=== PATIENT | female | born 1955 | race Two or more races ===

== ENCOUNTER 2021-02-24 14:35 | Inpatient (IN) | payer MEDICARE, MEDICAID ==
[~2021-02-24] VITALS: Ht 165.1 cm; Wt 116.7 kg
[2021-02-24 15:20] LABS: Basophils # (auto) 0 10 ^3/uL (0-0.2); Basophils % (auto) 0.2 % (0.0-2.0); Eosinophils # (auto) 0 10 ^3/uL (0-0.8); Hematocrit 39.3 % (36.0-46.0); Hemoglobin 13.3 g/dL (12.2-16.2); Lymphocytes # (auto) 1.5 10 ^3/uL (0.4-5.4); Mean Corpuscular Hemoglobin 30.9 pg (28.0-32.0); Mean Corpuscular Volume 91.1 fL (80.0-100.0); Monocytes # (auto) 0.7 10 ^3/uL (0-1.3); Monocytes % (auto) 6.6 % (0.0-12.0); Neutrophils # (auto) 8.6 10 ^3/uL (1.6-8.6); Neutrophils % (auto) 79.2 % (37.0-80.0); Platelet Count (auto) 332 10^3/uL (140-450); Red Blood Cells 4.31 10^6/uL (4.0-5.20); Red Cell Distribution Width 13.6 % (11.8-14.3); White Blood Cell 10.8 10^3/uL (4.4-10.8)
[2021-02-24 15:48] LABS: Albumin 3.3 g/dL (3.4-5.0); Calcium 8.6 mg/dL (8.5-10.1)
[2021-02-24 15:55] LABS: Bilirubin, Total 0.6 mg/dL (0.2-1.0); Total Protein 7.4 g/dL (6.4-8.2)
[2021-02-24 16:08] LABS: Potassium 2.6 mmol/L (3.5-5.1)
[2021-02-24] MEDS ORDERED: POTASSIUM EFFERVESENT TAB 25 MEQ PO ONE (16:15)
[2021-02-24] MEDS ORDERED: SODIUM CHLORIDE 0.9% 500 ML IVB ONE (16:30)
[2021-02-24] MEDS ORDERED: SODIUM CHLORIDE 0.9% 1,000 ML IV ONE (16:30)
[2021-02-24] MEDS ORDERED: LORazepam 2MG/ML-1ML VIAL ONE (18:17)
[2021-02-24] MEDS ORDERED: LORazepam 2MG/ML-1ML VIAL IV ONE (18:45)
[2021-02-24] MEDS: POTASSIUM CHL 20MEQ/100ML 100 ML IV SCH ×2 (18:46→20:35)
[2021-02-24 19:02] LABS: Urine Bacteria NONE SEEN /hpf (None Seen); Urine Blood Negative /uL (Negative); Urine Specific Gravity 1.006 (1.001-1.035); Urine WBC <1 /hpf (0 - 5)
[2021-02-24 19:02] LABS: INR 1.03 (0.9-1.15); Partial Thromboplastin Time 21.1 sec (23.0-31.2)
[2021-02-24 19:21] LABS: Alcohol, Urine < 3.0 mg/dL (0-10); Amphetamine Screen, Urine NEGATIVE (NEGATIVE); Barbiturate Scree,Urine NEGATIVE (NEGATIVE); Benzodiazephine Screen, Urine POSITIVE (NEGATIVE); Cannabinoid Screen, Urine NEGATIVE (NEGATIVE); Cocaine Screen, Urine NEGATIVE (NEGATIVE); Opiate Scree,Urine NEGATIVE (NEGATIVE); Phencyclidine Screen, Urine NEGATIVE (NEGATIVE)
[2021-02-24] MEDS ORDERED: MORPHINE SULF INJ 2 MG/ML SYRINGE 1ML IV PRN (23:00)
[2021-02-24] MEDS ORDERED: DOCUSATE SOD 100 MG CAP PO PRN (23:00)
[2021-02-24] MEDS ORDERED: HYDROcodone-ACET 5/325MG TAB PO PRN (23:00)
[2021-02-24] MEDS ORDERED: NITROGLYCERIN 0.4 MG SL TAB SL PRN (23:00)
[2021-02-24] MEDS ORDERED: ONDANSETRON HCL 4 MG/2 ML VIAL IV PRN (23:00)
[2021-02-24] MEDS ORDERED: TEMAZEPAM 15 MG CAP PO PRN (23:00)
[2021-02-24] MEDS ORDERED: ACETAMINOPHEN 325 MG TAB PO PRN (23:00)
[2021-02-25 05:00] VITALS: BP 142/67
[2021-02-25] MEDS: SODIUM CHLOR 0.9% PF (SALINE LOCK) 10ML VIAL/SYR IV SCH ×3 (06:04→21:16)
[2021-02-25] MEDS ORDERED: LORazepam 2MG/ML-1ML VIAL IV PRN ×3 (06:45→18:45)
[2021-02-25] MEDS ORDERED: ZINC SULFATE 220mg CAP or TAB PO SCH (10:00)
[2021-02-25] MEDS ORDERED: ASCORBIC ACID 500 MG TAB PO SCH (10:00)
[2021-02-25] MEDS: FAMOTIDINE 20 MG TAB PO SCH ×2 (10:00→21:15)
[2021-02-25] MEDS: MULTIPLE VITAMIN TAB PO SCH (10:00)
[2021-02-25] MEDS: HEPARIN SODIUM (PORCINE) 5000 UNITS/ML 1ML VIAL SC SCH ×2 (10:00→21:12)
[2021-02-25 11:20] LABS: Basophils # (auto) 0.1 10 ^3/uL (0-0.2); Basophils % (auto) 0.4 % (0.0-2.0); Eosinophils # (auto) 0 10 ^3/uL (0-0.8); Hematocrit 40.6 % (36.0-46.0); Lymphocytes # (auto) 1.8 10 ^3/uL (0.4-5.4); Lymphocytes % (auto) 14.1 % (10.0-50.0); Mean Corpuscular Hemoglobin 30.9 pg (28.0-32.0); Mean Corpuscular Hgb Conc. 34.3 g/dL (32.0-36.0); Mean Corpuscular Volume 89.9 fL (80.0-100.0); Monocytes # (auto) 0.8 10 ^3/uL (0-1.3); Monocytes % (auto) 6.7 % (0.0-12.0); Neutrophils % (auto) 78.8 % (37.0-80.0); Nucleated Red Blood Cells % 0.1 %; Platelet Count (auto) 321 10^3/uL (140-450); Red Blood Cells 4.52 10^6/uL (4.0-5.20); Red Cell Distribution Width 13.6 % (11.8-14.3); White Blood Cell 12.7 10^3/uL (4.4-10.8)
[2021-02-25 11:24] LABS: Urine Bacteria NONE SEEN /hpf (None Seen); Urine Blood TRACE /uL (Negative); Urine Specific Gravity 1.007 (1.001-1.035); Urine WBC 1 /hpf (0 - 5)
[2021-02-25 11:31] LABS: Albumin 3.2 g/dL (3.4-5.0); Calcium 8.4 mg/dL (8.5-10.1)
[2021-02-25 11:34] LABS: BUN/Creatinine Ratio 13.2; Bilirubin, Total 0.7 mg/dL (0.2-1.0); Total Protein 7.3 g/dL (6.4-8.2)
[2021-02-25] MEDS ORDERED: HALOPERIDOL LACTATE 5 MG/ML INJ VIAL IV ONE (11:45)
[2021-02-25 11:46] LABS: Potassium 2.7 mmol/L (3.5-5.1)
[2021-02-25] MEDS ORDERED: POTASSIUM CHL 20 Meq TABLET PO ONE (12:00)
[2021-02-25] MEDS ORDERED: POTASSIUM EFFERVESENT TAB 25 MEQ PO ONE (12:00)
[2021-02-25] MEDS ORDERED: HYDR-4072 PO (13:06)
[2021-02-25] MEDS ORDERED: ALPR0.254 PO (13:06)
[2021-02-25] MEDS: ALPRAZolam 0.5 MG TAB PO SCH ×2 (14:00→21:15)
[2021-02-25] MEDS: HALOPERIDOL LACTATE 5 MG/ML INJ VIAL IM PRN (16:07)
[2021-02-25] MEDS ORDERED: FLUO60TA7 PO (18:27)
[2021-02-25] MEDS ORDERED: PROP60CA34 PO (18:27)
[2021-02-25 20:19] LABS: Cholesterol 117 mg/dL (< 200); HDL Cholesterol 39 mg/dL (40-59); LDL Cholesterol 60 mg/dL (< 100); Triglycerides 153 mg/dL (< 150)
[2021-02-25] MEDS: ATORVASTATIN 20 MG TAB PO SCH (21:15)
[2021-02-25] MEDS: PROPRANOLOL HCL 20 MG TAB PO SCH (21:15)
[2021-02-25 22:00] VITALS: BP 112/75
[2021-02-25] MEDS: HYDROcodone-ACET 10/325MG TAB PO PRN (22:43)
[2021-02-26] MEDS: HALOPERIDOL LACTATE 5 MG/ML INJ VIAL IM PRN (03:31)
[2021-02-26] MEDS: SODIUM CHLOR 0.9% PF (SALINE LOCK) 10ML VIAL/SYR IV SCH ×3 (05:27→21:16)
[2021-02-26] MEDS: ALPRAZolam 0.5 MG TAB PO SCH ×3 (05:28→21:15)
[2021-02-26] MEDS: PROPRANOLOL HCL 20 MG TAB PO SCH ×3 (05:28→22:34)
[2021-02-26 05:34] VITALS: BP 133/77
[2021-02-26] MEDS ORDERED: LORazepam 2MG/ML-1ML VIAL IV PRN (08:00)
[2021-02-26] MEDS: LORazepam 2MG/ML-1ML VIAL IV PRN ×2 (08:40→15:20)
[2021-02-26 09:00] VITALS: BP 100/62
[2021-02-26] MEDS: ASPirin 81 mg TAB PO SCH (09:21)
[2021-02-26] MEDS: FAMOTIDINE 20 MG TAB PO SCH ×2 (09:21→21:15)
[2021-02-26] MEDS: MULTIPLE VITAMIN TAB PO SCH (09:21)
[2021-02-26] MEDS: HEPARIN SODIUM (PORCINE) 5000 UNITS/ML 1ML VIAL SC SCH ×2 (09:24→21:16)
[2021-02-26 10:12] LABS: Basophils # (auto) 0.1 10 ^3/uL (0-0.2); Basophils % (auto) 0.6 % (0.0-2.0); Eosinophils # (auto) 0 10 ^3/uL (0-0.8); Eosinophils % (auto) 0.5 % (0.0-7.0); Hematocrit 37.6 % (36.0-46.0); Hemoglobin 12.8 g/dL (12.2-16.2); Lymphocytes # (auto) 1.9 10 ^3/uL (0.4-5.4); Lymphocytes % (auto) 17.8 % (10.0-50.0); Mean Corpuscular Hemoglobin 30.8 pg (28.0-32.0); Mean Corpuscular Hgb Conc. 34.1 g/dL (32.0-36.0); Mean Corpuscular Volume 90.3 fL (80.0-100.0); Monocytes # (auto) 0.8 10 ^3/uL (0-1.3); Monocytes % (auto) 7.2 % (0.0-12.0); Neutrophils # (auto) 7.8 10 ^3/uL (1.6-8.6); Neutrophils % (auto) 73.9 % (37.0-80.0); Nucleated Red Blood Cells % 0.1 %; Platelet Count (auto) 299 10^3/uL (140-450); Red Blood Cells 4.16 10^6/uL (4.0-5.20); Red Cell Distribution Width 13.6 % (11.8-14.3); White Blood Cell 10.6 10^3/uL (4.4-10.8)
[2021-02-26 10:54] LABS: Calcium 8.1 mg/dL (8.5-10.1); Potassium 3.1 mmol/L (3.5-5.1)
[2021-02-26 12:46] VITALS: BP 134/57
[2021-02-26] MEDS ORDERED: POTASSIUM CHL 20 Meq TABLET PO ONE (14:15)
[2021-02-26 17:00] VITALS: BP 117/83
[2021-02-26] MEDS: ATORVASTATIN 20 MG TAB PO SCH (21:15)
[2021-02-26 22:00] VITALS: BP 139/86
[2021-02-27] MEDS: HYDROcodone-ACET 10/325MG TAB PO PRN (02:31)
[2021-02-27 05:00] VITALS: BP 133/76
[2021-02-27] MEDS: ALPRAZolam 0.5 MG TAB PO SCH ×3 (05:31→21:41)
[2021-02-27] MEDS: PROPRANOLOL HCL 20 MG TAB PO SCH ×3 (05:32→21:42)
[2021-02-27] MEDS: SODIUM CHLOR 0.9% PF (SALINE LOCK) 10ML VIAL/SYR IV SCH ×3 (05:32→21:42)
[2021-02-27 07:54] LABS: Potassium 3.4 mmol/L (3.5-5.1)
[2021-02-27 08:06] LABS: Calcium 8.5 mg/dL (8.5-10.1); Magnesium 2.4 mg/dL (1.6-2.6)
[2021-02-27] MEDS: MULTIPLE VITAMIN TAB PO SCH (09:23)
[2021-02-27] MEDS: ASPirin 81 mg TAB PO SCH (09:23)
[2021-02-27] MEDS: LORazepam 2MG/ML-1ML VIAL IV PRN (09:24)
[2021-02-27] MEDS: HEPARIN SODIUM (PORCINE) 5000 UNITS/ML 1ML VIAL SC SCH ×2 (09:25→21:41)
[2021-02-27 09:26] VITALS: BP 116/69
[2021-02-27 13:57] VITALS: BP 118/74
[2021-02-27] MEDS ORDERED: POTASSIUM CHL 20 Meq TABLET PO ONE (14:30)
[2021-02-27 18:01] VITALS: BP 96/62
[2021-02-27 21:39] VITALS: BP 138/72
[2021-02-27] MEDS: ATORVASTATIN 20 MG TAB PO SCH (21:42)
[2021-02-28] MEDS: HYDROcodone-ACET 10/325MG TAB PO PRN ×2 (01:28→11:05)
[2021-02-28 04:49] VITALS: BP 121/90
[2021-02-28] MEDS: PROPRANOLOL HCL 20 MG TAB PO SCH ×2 (05:21→14:22)
[2021-02-28] MEDS: ALPRAZolam 0.5 MG TAB PO SCH ×2 (05:21→14:22)
[2021-02-28] MEDS: SODIUM CHLOR 0.9% PF (SALINE LOCK) 10ML VIAL/SYR IV SCH ×2 (05:22→14:23)
[2021-02-28 09:00] VITALS: BP 135/67
[2021-02-28] MEDS: MULTIPLE VITAMIN TAB PO SCH (09:56)
[2021-02-28] MEDS: HEPARIN SODIUM (PORCINE) 5000 UNITS/ML 1ML VIAL SC SCH (09:57)
[2021-02-28 13:00] VITALS: BP 142/66
[2021-02-28 15:57] VITALS: BP 144/66
[2021-02-28 16:51] VITALS: BP 123/65
== END 2021-02-28 18:00 | disposition home or self-care (01) | DRG 917 ==
LOC: EDBD 14:35 → ER 14:35 → TELE-WESTW 22:47 → ER 02-25 01:39 → TELE-WESTW 02-25 08:20
PROVIDERS: ADMIT Nurse Practitioner Family; ATTEND Internal Medicine
DX: T50.901A Poisoning by unspecified drugs, medicaments and biological substances, accidental (unintentional), initial encounter (principal); G92 Toxic encephalopathy; I50.31 Acute diastolic (congestive) heart failure; J96.00 Acute respiratory failure, unspecified whether with hypoxia or hypercapnia; E44.1 Mild protein-calorie malnutrition; F13.239 Sedative, hypnotic or anxiolytic dependence with withdrawal, unspecified; Z68.41 Body mass index [BMI] 40.0-44.9, adult; G40.509 Epileptic seizures related to external causes, not intractable, without status epilepticus; G40.409 Other generalized epilepsy and epileptic syndromes, not intractable, without status epilepticus; G25.0 Essential tremor; E87.6 Hypokalemia; E66.01 Morbid (severe) obesity due to excess calories; Z99.3 Dependence on wheelchair; F32.9 Major depressive disorder, single episode, unspecified; G89.4 Chronic pain syndrome; I11.0 Hypertensive heart disease with heart failure; Y92.89 Other specified places as the place of occurrence of the external cause; Z20.822 Contact with and (suspected) exposure to COVID-19; F17.200 Nicotine dependence, unspecified, uncomplicated; F41.9 Anxiety disorder, unspecified; R32 Unspecified urinary incontinence; Z79.82 Long term (current) use of aspirin; Z79.899 Other long term (current) drug therapy; Z82.62 Family history of osteoporosis; Z83.3 Family history of diabetes mellitus
CPT/HCPCS: 36415; 51702; 70450; 70551; 71045; 72170; 80048; 80053; 80061; 80307; 81001; 83605; 83735; 84439; 84443; 84484; 85025; 85610; 85730; 87040; 87086; 87426; 93005; 93306; 93886; 95819; 96361; 96365; 96375; G0378; J3480; J7060

== ENCOUNTER 2021-07-15 07:54 | Inpatient (IN) | payer MEDICARE, MEDICAID ==
[~2021-07-15] VITALS: Ht 157.5 cm; Wt 102.0 kg
[~2021-07-15 07:54] MED LIST: ALPR0.254 PO; FLUO60TA7 PO; HYDR-4072 PO; PROP60CA34 PO
[2021-07-15] MEDS ORDERED: SODIUM CHLORIDE 0.9% 1,000 ML IV ONE (10:15)
[2021-07-15] MEDS ORDERED: SODIUM CHLORIDE 0.9% 500 ML IVB ONE (10:15)
[2021-07-15 11:29] LABS: Urine Bacteria FEW /hpf (None Seen); Urine Blood Negative /uL (Negative); Urine Specific Gravity 1.006 (1.001-1.035); Urine WBC 1 /hpf (0 - 5)
[2021-07-15 11:32] LABS: Alcohol, Urine < 3.0 mg/dL (0-10); Amphetamine Screen, Urine NEGATIVE (NEGATIVE); Barbiturate Scree,Urine NEGATIVE (NEGATIVE); Benzodiazephine Screen, Urine NEGATIVE (NEGATIVE); Cannabinoid Screen, Urine NEGATIVE (NEGATIVE); Cocaine Screen, Urine NEGATIVE (NEGATIVE); Opiate Scree,Urine NEGATIVE (NEGATIVE); Phencyclidine Screen, Urine NEGATIVE (NEGATIVE)
[2021-07-15 11:32] LABS: Calcium 7.7 mg/dL (8.5-10.1); Magnesium 2.3 mg/dL (1.6-2.6); Potassium 4.9 mmol/L (3.5-5.1)
[2021-07-15 11:38] LABS: Bilirubin, Total 0.5 mg/dL (0.2-1.0); Total Protein 7.2 g/dL (6.4-8.2)
[2021-07-15 12:31] LABS: Basophils # (auto) 0 10 ^3/uL (0-0.2); Basophils % (auto) 0.3 % (0.0-2.0); Eosinophils # (auto) 0 10 ^3/uL (0-0.8); Eosinophils % (auto) 0.5 % (0.0-7.0); Hematocrit 40.3 % (36.0-46.0); Hemoglobin 13.6 g/dL (12.2-16.2); Lymphocytes # (auto) 1.7 10 ^3/uL (0.4-5.4); Lymphocytes % (auto) 17.7 % (10.0-50.0); Mean Corpuscular Hemoglobin 30.8 pg (28.0-32.0); Mean Corpuscular Hgb Conc. 33.8 g/dL (32.0-36.0); Mean Corpuscular Volume 91.1 fL (80.0-100.0); Monocytes # (auto) 0.5 10 ^3/uL (0-1.3); Monocytes % (auto) 5.6 % (0.0-12.0); Neutrophils # (auto) 7.2 10 ^3/uL (1.6-8.6); Neutrophils % (auto) 75.9 % (37.0-80.0); Red Blood Cells 4.42 10^6/uL (4.0-5.20); Red Cell Distribution Width 14.3 % (11.8-14.3); White Blood Cell 9.5 10^3/uL (4.4-10.8)
[2021-07-15] MEDS ORDERED: LORazepam 2MG/ML-1ML VIAL ONE (12:48)
[2021-07-15] MEDS ORDERED: LORazepam 2MG/ML-1ML VIAL IV ONE (13:00)
[2021-07-15] MEDS ORDERED: LACTULOSE 20Gm/30ML SOLN PO PRN (14:00)
[2021-07-15] MEDS ORDERED: MORPHINE SULFATE INJECTION 2 MG/ML SYRG IV PRN (14:00)
[2021-07-15] MEDS ORDERED: traMADol HCL 50 MG TAB PO PRN (14:00)
[2021-07-15] MEDS ORDERED: NITROGLYCERIN 0.4 MG SL TAB SL PRN (14:00)
[2021-07-15] MEDS ORDERED: ACETAMINOPHEN 500 MG TAB PO PRN (14:00)
[2021-07-15] MEDS ORDERED: LORazepam 2MG/ML-1ML VIAL IV PRN ×2 (14:00→21:45)
[2021-07-15] MEDS: SODIUM CHLORIDE 0.9% 1,000 ML IV SCH (14:59)
[2021-07-15] MEDS ORDERED: METOPROLOL TARTRATE 25 MG TAB PO SCH (22:00)
[2021-07-15] MEDS ORDERED: levETIRAcetam 500 MG TAB PO SCH (22:00)
[2021-07-15 23:03] VITALS: BP 142/80
[2021-07-15] MEDS: FLUoxetine HCL 20 MG CAP PO SCH ×3 (23:16→23:46)
[2021-07-15] MEDS: PROPRANOLOL HCL 20 MG TAB PO SCH (23:17)
[2021-07-15] MEDS: TEMAZEPAM 15 MG CAP PO PRN (23:40)
[2021-07-16 01:04] VITALS: BP 142/80
[2021-07-16] MEDS: ALPRAZolam 0.5 MG TAB PO PRN ×2 (02:11→22:05)
[2021-07-16] MEDS: SODIUM CHLORIDE 0.9% 1,000 ML IV SCH (03:20)
[2021-07-16] MEDS: PROMETHAZINE HCL 25 MG/ML 1ML IV PRN (04:00)
[2021-07-16 05:00] VITALS: BP 140/81
[2021-07-16] MEDS: FLUoxetine HCL 20 MG CAP PO SCH ×3 (06:46→22:05)
[2021-07-16 09:00] VITALS: BP 126/74
[2021-07-16] MEDS ORDERED: ENOXAPARIN SOD 40 MG/0.4 ML SYRINGE SC SCH (10:00)
[2021-07-16] MEDS ORDERED: FLUoxetine HCL 20 MG CAP PO SCH (10:00)
[2021-07-16] MEDS ORDERED: ASPirin 81 mg TAB PO SCH (10:00)
[2021-07-16] MEDS ORDERED: NITROGLYCERIN 0.2MG/HR TOPICAL PATCH TD SCH (10:00)
[2021-07-16] MEDS: PROPRANOLOL HCL 20 MG TAB PO SCH ×2 (10:24→22:05)
[2021-07-16 13:00] VITALS: BP 137/74
[2021-07-16 13:56] LABS: Cholesterol 129 mg/dL (< 200); HDL Cholesterol 37 mg/dL (40-59); LDL Cholesterol 70 mg/dL (< 100); Triglycerides 164 mg/dL (< 150)
[2021-07-16 17:00] VITALS: BP 121/63
[2021-07-16 21:56] VITALS: BP 128/81
[2021-07-17] MEDS: PROMETHAZINE HCL 25 MG/ML 1ML IV PRN
[2021-07-17] MEDS: TEMAZEPAM 15 MG CAP PO PRN
[2021-07-17] MEDS: ALPRAZolam 0.5 MG TAB PO PRN (04:28)
[2021-07-17 04:57] VITALS: BP 126/68
[2021-07-17] MEDS: FLUoxetine HCL 20 MG CAP PO SCH ×3 (07:01→11:19)
[2021-07-17 09:00] VITALS: BP 126/78
[2021-07-17] MEDS ORDERED: traZODone HCL 50 MG TAB PO PRN (09:45)
[2021-07-17] MEDS ORDERED: FUROSEMIDE 20 MG/2 ML VIAL IV ONE (10:30)
[2021-07-17] MEDS ORDERED: POTASSIUM CHL 20 Meq TABLET PO ONE (10:30)
[2021-07-17] MEDS: PROPRANOLOL HCL 20 MG TAB PO SCH (11:03)
[2021-07-17] MEDS ORDERED: clonazePAM 0.5 MG TAB PO SCH (16:00)
== END 2021-07-17 14:30 | disposition home or self-care (01) | DRG 100 ==
LOC: EDBD 07:54 → ER 07:54 → TELE 13:46 → TELE-CENTR 22:26
PROVIDERS: ADMIT Internal Medicine; ATTEND Internal Medicine
DX: G40.409 Other generalized epilepsy and epileptic syndromes, not intractable, without status epilepticus (principal); I21.A1 Myocardial infarction type 2; I50.32 Chronic diastolic (congestive) heart failure; E44.1 Mild protein-calorie malnutrition; Z68.41 Body mass index [BMI] 40.0-44.9, adult; F05 Delirium due to known physiological condition; F13.239 Sedative, hypnotic or anxiolytic dependence with withdrawal, unspecified; G89.4 Chronic pain syndrome; G25.0 Essential tremor; F20.9 Schizophrenia, unspecified; F41.1 Generalized anxiety disorder; R55 Syncope and collapse; E66.01 Morbid (severe) obesity due to excess calories; I11.0 Hypertensive heart disease with heart failure; Z20.822 Contact with and (suspected) exposure to COVID-19; Z79.891 Long term (current) use of opiate analgesic; Z82.62 Family history of osteoporosis; Z83.3 Family history of diabetes mellitus; Z88.6 Allergy status to analgesic agent
CPT/HCPCS: 36415; 70450; 71045; 80053; 80061; 80307; 81001; 82550; 83036; 83735; 84443; 84484; 85025; 85652; 86141; 87426; 93005; 95819; 96361; 96365; 96375; 97163; G0378; J7060

== ENCOUNTER 2024-03-10 15:26 | Inpatient (IN) | payer MEDICARE, MEDICAID ==
[~2024-03-10] VITALS: Ht 162.6 cm; Wt 113.7 kg
[~2024-03-10 15:26] MED LIST changes: +ACET500T58 PO; +CEPH250C PO; +FURO1TAB31 PO; +HYDR-4798 PO; +HYDR-4902 PO
[2024-03-10 16:10] VITALS: PULSE 68; RESP 20; O2SAT 94
[2024-03-10] MEDS: LORazepam 2MG/ML-1ML VIAL IV ONE (16:15)
[2024-03-10] MEDS: SODIUM CHLORIDE 0.9% 1,000 ML IVB ONE (16:15)
[2024-03-10] MEDS: IOHEXOL 350 MG/ML 100ML IJ ONE (16:30)
[2024-03-10 17:57] LABS: Basophils # (auto) 0 10 ^3/uL (0-0.2); Basophils % (auto) 0.2 % (0.0-2.0); Eosinophils # (auto) 0.1 10 ^3/uL (0-0.8); Eosinophils % (auto) 0.8 % (0.0-7.0); Hematocrit 45.3 % (36.0-46.0); Hemoglobin 15.3 g/dL (12.2-16.2); Lymphocytes # (auto) 2.1 10 ^3/uL (0.4-5.4); Lymphocytes % (auto) 21.3 % (10.0-50.0); Mean Corpuscular Hemoglobin 31.3 pg (28.0-32.0); Mean Corpuscular Hgb Conc. 33.7 g/dL (32.0-36.0); Mean Corpuscular Volume 92.9 fL (80.0-100.0); Monocytes # (auto) 0.9 10 ^3/uL (0-1.3); Monocytes % (auto) 8.8 % (0.0-12.0); Neutrophils # (auto) 6.8 10 ^3/uL (1.6-8.6); Neutrophils % (auto) 68.9 % (37.0-80.0); Red Blood Cells 4.87 10^6/uL (4.0-5.20); Red Cell Distribution Width 13.7 % (11.8-14.3); White Blood Cell 9.9 10^3/uL (4.4-10.8)
[2024-03-10 17:58] LABS: Urine Bacteria None Seen /hpf (None Seen)
[2024-03-10 18:12] LABS: Alanine Aminotransferase 16 U/L (7-40); Alkaline Phosphatase 95 U/L (46-116); Anion Gap 7 (5-15); Aspartate Aminotransferase 16 U/L (13-40); BUN/Creatinine Ratio 24.6 (10.0-20.0); Blood Alcohol < 3.0 mg/dL (<10); Blood Urea Nitrogen 17 mg/dL (9-23); Calcium 10.5 mg/dL (8.5-10.1); Carbon Dioxide 31 mmol/L (20-30); Chloride 100 mmol/L (98-107); Glucose 94 mg/dL (74-106); Magnesium 2.3 mg/dL (1.6-2.6); Partial Thromboplastin Time 26.6 SEC (24.5-34.5); Potassium 4.2 mmol/L (3.5-5.1); Prothrombin Time 10.6 sec (9.3-11.8); Sodium 138 mmol/L (136-145)
[2024-03-10 18:13] LABS: Albumin 4.9 g/dL (3.2-4.8); Bilirubin, Total 1.2 mg/dL (0.2-1.0); Total Protein 7.7 g/dL (5.7-8.2)
[2024-03-10 18:19] LABS: Urine Blood Negative /uL (Negative); Urine Clarity Clear (Clear); Urine Color Colorless (Yellow); Urine Protein, UAD Negative (Negative); Urine Specific Gravity 1.005 (1.001-1.035); Urine Urobilinogen Normal (Negative); Urine WBC 1 /hpf (0 - 5)
[2024-03-10 18:34] LABS: Amphetamine Screen, Urine Neg (NEGATIVE); Barbiturate Scree,Urine Neg (NEGATIVE); Benzodiazephine Screen, Urine Pos (NEGATIVE); Cannabinoid Screen, Urine Neg (NEGATIVE); Cocaine Screen, Urine Neg (NEGATIVE); Opiate Scree,Urine Neg (NEGATIVE); Phencyclidine Screen, Urine Neg (NEGATIVE)
[2024-03-10 19:30] VITALS: PULSE 69; RESP 24; O2SAT 97
[2024-03-10] MEDS ORDERED: ONDANSETRON HCL 4 MG/2 ML VIAL IV PRN (21:45)
[2024-03-10] MEDS: SODIUM CHLOR 0.9% PF (SALINE LOCK) 10ML VIAL/SYR IV SCH (22:18)
[2024-03-10] MEDS: levETIRAcetam 500 mg/100ml 100 ML IV SCH (22:21)
[2024-03-11] VITALS (8 sets, daily range): BP systolic 143–179; BP diastolic 74–109; PULSE 65–107; RESP 18–20; TEMP 98.3–100; O2SAT 91–94
[2024-03-11] MEDS: FUROSEMIDE 40 MG TAB PO SCH (09:29)
[2024-03-11] MEDS: ENOXAPARIN SOD 40 MG/0.4 ML SYRINGE SC SCH (10:41)
[2024-03-11] MEDS ORDERED: ROSU10TA16 PO (11:11)
[2024-03-11] MEDS ORDERED: ALBU108A5 PO (11:11)
[2024-03-11] MEDS ORDERED: ALEN70TA74 PO (11:11)
[2024-03-11] MEDS: AMOXICILLIN/CLAVULAN 500 MG TAB PO SCH (13:44)
[2024-03-11] MEDS: PROPRANOLOL HCL 20 MG TAB PO SCH (13:44)
[2024-03-11] MEDS: LORazepam 2MG/ML-1ML VIAL IV PRN (19:58)
[2024-03-12] VITALS (8 sets, daily range): BP systolic 142–165; BP diastolic 71–96; PULSE 84–96; RESP 18–22; TEMP 98.3–100; O2SAT 91–100
[2024-03-12 02:56] LABS: COVID19 ANTIGEN SOFIA FIA NEGATIVE (NEGATIVE); Rapid Influenza A Negative (Negative); Rapid Influenza B Negative (Negative)
[2024-03-12] MEDS: D5W/SOD CHL 0.45%/KCL 20MEQ 1,000 ML IV SCH (16:20)
[2024-03-13 00:43] VITALS: BP 162/75; PULSE 72; RESP 18; TEMP 99.3; O2SAT 94
[2024-03-13 04:50] VITALS: BP 154/85; PULSE 65; RESP 18; TEMP 97.7; O2SAT 93
[2024-03-13 09:00] VITALS: BP 158/88; PULSE 95; RESP 20; TEMP 98.3; O2SAT 95
[2024-03-13] MEDS: IOHEXOL 350 MG/ML 100ML IJ ONE (09:09)
[2024-03-13 13:00] VITALS: BP 166/89; PULSE 61; RESP 20; TEMP 98.3; O2SAT 94
[2024-03-13] MEDS: ACETAMINOPHEN 325 MG TAB PO PRN (14:12)
[2024-03-13] MEDS: LORazepam 2MG/ML-1ML VIAL IV PRN (15:45)
[2024-03-13 17:00] VITALS: BP 158/87; PULSE 59; TEMP 98.5; O2SAT 93
[2024-03-13 20:00] VITALS: PULSE 68; RESP 20; O2SAT 95
[2024-03-13] MEDS: NYSTATIN TOPICAL POWDER 15GM TOP SCH (22:56)
[2024-03-14] VITALS (7 sets, daily range): BP systolic 125–193; BP diastolic 68–95; PULSE 63–85; RESP 18–20; TEMP 98.6–100.5; O2SAT 92–96
[2024-03-14] MEDS ORDERED: hydrALAZINE HCL 20 MG/ML VL IV PRN (09:45)
[2024-03-14] MEDS ORDERED: ACETAMINOPHEN IV 1000 MG/100ML (10MG/ML) IV PRN (09:45)
[2024-03-14] MEDS: FLUoxetine HCL 20 MG CAP PO SCH (09:46)
[2024-03-14] MEDS: ALPRAZolam 0.25 MG TAB PO PRN (22:12)
[2024-03-14] MEDS: levETIRAcetam 1000 mg/100ml 100 ML IV SCH (22:13)
[2024-03-15 01:01] VITALS: BP 138/82; PULSE 75; RESP 20; TEMP 98.5; O2SAT 96
[2024-03-15 05:00] VITALS: BP 146/78; PULSE 60; RESP 20; TEMP 98.6; O2SAT 95
[2024-03-15 08:05] VITALS: BP 154/81; PULSE 58; RESP 20; TEMP 98.5; O2SAT 95
[2024-03-15 13:00] VITALS: BP 130/81; PULSE 67; RESP 20; TEMP 98.2; O2SAT 92
[2024-03-15 13:02] LABS: Folate (Folic Acid) > 24.00 ng/mL (>5.38)
[2024-03-15 15:49] LABS: Basophils # (auto) 0 10 ^3/uL (0-0.2); Basophils % (auto) 0.2 % (0.0-2.0); Eosinophils # (auto) 0.2 10 ^3/uL (0-0.8); Eosinophils % (auto) 1.5 % (0.0-7.0); Hematocrit 46.6 % (36.0-46.0); Lymphocytes # (auto) 3.2 10 ^3/uL (0.4-5.4); Lymphocytes % (auto) 23.4 % (10.0-50.0); Mean Corpuscular Hemoglobin 30.8 pg (28.0-32.0); Mean Corpuscular Hgb Conc. 32.3 g/dL (32.0-36.0); Mean Corpuscular Volume 95.3 fL (80.0-100.0); Monocytes # (auto) 1.1 10 ^3/uL (0-1.3); Monocytes % (auto) 8.1 % (0.0-12.0); Neutrophils # (auto) 9.2 10 ^3/uL (1.6-8.6); Neutrophils % (auto) 66.8 % (37.0-80.0); Nucleated Red Blood Cells % 0.1 %; Red Blood Cells 4.89 10^6/uL (4.0-5.20); Red Cell Distribution Width 13.9 % (11.8-14.3); White Blood Cell 13.7 10^3/uL (4.4-10.8)
[2024-03-15 16:08] LABS: Chloride 108 mmol/L (98-107); Potassium 3.5 mmol/L (3.5-5.1); Sodium 139 mmol/L (136-145)
[2024-03-15 16:09] LABS: Anion Gap 6 (5-15); Carbon Dioxide 25 mmol/L (20-30)
[2024-03-15 16:10] LABS: Calcium 9.2 mg/dL (8.7-10.4)
[2024-03-15 16:14] LABS: BUN/Creatinine Ratio 10.5 (10.0-20.0); Blood Urea Nitrogen 6 mg/dL (9-23); Glucose 124 mg/dL (74-106)
[2024-03-15 16:35] VITALS: BP 153/75; PULSE 70; RESP 20; TEMP 98.5; O2SAT 93
[2024-03-15 22:00] VITALS: BP 101/81; PULSE 61; RESP 22; TEMP 98.3; O2SAT 96
[2024-03-16] VITALS (21 sets, daily range): BP systolic 124–174; BP diastolic 59–93; PULSE 59–94; RESP 16–35; TEMP 97.9–99.4; O2SAT 78–100
[2024-03-16] MEDS: LORazepam 2MG/ML-1ML VIAL IV PRN (00:12)
[2024-03-16] MEDS: levETIRAcetam 1000 mg/100ml 100 ML IV ONE (00:16)
[2024-03-16] MEDS: PHENobarbital SODIUM INJ 600 MG in SODIUM CHL 0.9% 100 ML IV ONE (05:17)
[2024-03-16] MEDS: levETIRAcetam 1500 mg/100ml 100 ML IV SCH (09:05)
[2024-03-16 09:11] LABS: Basophils # (auto) 0.1 10 ^3/uL (0-0.2); Basophils % (auto) 0.6 % (0.0-2.0); Eosinophils # (auto) 0.1 10 ^3/uL (0-0.8); Eosinophils % (auto) 0.9 % (0.0-7.0); Hematocrit 42.3 % (36.0-46.0); Hemoglobin 14.4 g/dL (12.2-16.2); Lymphocytes # (auto) 2.4 10 ^3/uL (0.4-5.4); Lymphocytes % (auto) 22.4 % (10.0-50.0); Mean Corpuscular Hemoglobin 31.5 pg (28.0-32.0); Mean Corpuscular Volume 92.6 fL (80.0-100.0); Monocytes % (auto) 9.3 % (0.0-12.0); Neutrophils # (auto) 7.3 10 ^3/uL (1.6-8.6); Neutrophils % (auto) 66.8 % (37.0-80.0); Nucleated Red Blood Cells % 0.1 %; Red Blood Cells 4.57 10^6/uL (4.0-5.20); Red Cell Distribution Width 13.5 % (11.8-14.3); White Blood Cell 10.9 10^3/uL (4.4-10.8)
[2024-03-16 09:25] LABS: Chloride 105 mmol/L (98-107); Potassium 3.1 mmol/L (3.5-5.1); Sodium 138 mmol/L (136-145)
[2024-03-16 09:26] LABS: Anion Gap 4 (5-15); Carbon Dioxide 29 mmol/L (20-30)
[2024-03-16 09:32] LABS: BUN/Creatinine Ratio 12.1 (10.0-20.0); Blood Urea Nitrogen 7 mg/dL (9-23); Glucose 107 mg/dL (74-106)
[2024-03-16] MEDS: D5W/SOD CHL 0.9%/KCL 40MEQ 1,000 ML IV SCH (11:49)
[2024-03-16] MEDS: LORazepam 2MG/ML-1ML VIAL IV ONE (12:45)
[2024-03-16] MEDS: ALPRAZolam 0.25 MG TAB PO SCH (18:00)
[2024-03-16] MEDS: PHENYTOIN IV DILANTIN 1,000 MG in SODIUM CHL 0.9% 250 ML IV ONE (18:15)
[2024-03-16] MEDS: MORPHINE SULFATE INJ 2 MG/ml SYRG IV PRN (20:18)
[2024-03-17] VITALS (38 sets, daily range): BP systolic 127–159; BP diastolic 56–98; PULSE 59–79; RESP 17–34; TEMP 97.6–98.2; O2SAT 89–100
[2024-03-17] MEDS: PHENYTOIN SODIUM 50 MG/ML 2ML VIAL IV SCH (01:45)
[2024-03-17 05:53] LABS: Anion Gap 8 (5-15); Carbon Dioxide 26 mmol/L (20-30); Chloride 107 mmol/L (98-107); Potassium 3.7 mmol/L (3.5-5.1); Sodium 141 mmol/L (136-145)
[2024-03-17 05:55] LABS: Calcium 9.3 mg/dL (8.7-10.4)
[2024-03-17 06:00] LABS: BUN/Creatinine Ratio 21.7 (10.0-20.0); Blood Urea Nitrogen 10 mg/dL (9-23); Glucose 103 mg/dL (74-106)
[2024-03-17] MEDS: FLUCONAZOLE 200MG/100ML 100 ML IV SCH (09:32)
[2024-03-17] MEDS: PHENYTOIN IV DILANTIN 400 MG in SODIUM CHL 0.9% 100 ML IV ONE (20:07)
[2024-03-18] VITALS (15 sets, daily range): BP systolic 104–156; BP diastolic 37–117; PULSE 69–80; RESP 21–32; TEMP 98.1–98.9; O2SAT 90–100
[2024-03-18 07:20] LABS: Basophils # (auto) 0 10 ^3/uL (0-0.2); Basophils % (auto) 0.2 % (0.0-2.0); Eosinophils # (auto) 0.1 10 ^3/uL (0-0.8); Eosinophils % (auto) 0.8 % (0.0-7.0); Hematocrit 41.1 % (36.0-46.0); Hemoglobin 13.9 g/dL (12.2-16.2); Lymphocytes % (auto) 19.5 % (10.0-50.0); Mean Corpuscular Hemoglobin 31.1 pg (28.0-32.0); Mean Corpuscular Hgb Conc. 33.9 g/dL (32.0-36.0); Mean Corpuscular Volume 91.9 fL (80.0-100.0); Monocytes # (auto) 0.9 10 ^3/uL (0-1.3); Monocytes % (auto) 8.8 % (0.0-12.0); Neutrophils # (auto) 7.1 10 ^3/uL (1.6-8.6); Neutrophils % (auto) 70.7 % (37.0-80.0); Red Blood Cells 4.48 10^6/uL (4.0-5.20); Red Cell Distribution Width 13.5 % (11.8-14.3); White Blood Cell 10.1 10^3/uL (4.4-10.8)
[2024-03-18 07:30] LABS: Alanine Aminotransferase 32 U/L (7-40); Albumin 3.9 g/dL (3.2-4.8); Alkaline Phosphatase 80 U/L (46-116); Anion Gap 7 (5-15); Aspartate Aminotransferase 23 U/L (13-40); BUN/Creatinine Ratio 18.8 (10.0-20.0); Bilirubin, Total 0.8 mg/dL (0.2-1.0); Blood Urea Nitrogen 9 mg/dL (9-23); Calcium 9.1 mg/dL (8.5-10.1); Carbon Dioxide 25 mmol/L (20-30); Chloride 109 mmol/L (98-107); Glucose 118 mg/dL (74-106); Potassium 3.4 mmol/L (3.5-5.1); Sodium 141 mmol/L (136-145); Total Protein 6.4 g/dL (5.7-8.2)
[2024-03-18] MEDS ORDERED: Jevity 1.2 Cal/Fiber 1 Liter GT SCH (11:15)
[2024-03-18] MEDS: IPRATROPIUM BROM 0.5 MG/2.5ML INH SOL NEB PRN (19:41)
[2024-03-18] MEDS: ALBUTEROL SULF 2.5 MG/0.5ML(0.5%) NEB SOLN NEB PRN (19:41)
[2024-03-18] MEDS: PHENYTOIN IV DILANTIN 300 MG in SODIUM CHL 0.9% 50 ML IV ONE (21:30)
[2024-03-18] MEDS: PHENYTOIN SODIUM 50 MG/ML 2ML VIAL IV ONE (21:30)
[2024-03-19] VITALS (21 sets, daily range): BP systolic 102–170; BP diastolic 39–107; PULSE 73–85; RESP 20–34; TEMP 97.3–100.8; O2SAT 95–100
[2024-03-19 05:59] LABS: Basophils # (auto) 0 10 ^3/uL (0-0.2); Basophils % (auto) 0.3 % (0.0-2.0); Eosinophils # (auto) 0.1 10 ^3/uL (0-0.8); Eosinophils % (auto) 0.5 % (0.0-7.0); Hematocrit 40.1 % (36.0-46.0); Hemoglobin 13.5 g/dL (12.2-16.2); Lymphocytes # (auto) 2.3 10 ^3/uL (0.4-5.4); Lymphocytes % (auto) 21.1 % (10.0-50.0); Mean Corpuscular Hemoglobin 31.4 pg (28.0-32.0); Mean Corpuscular Hgb Conc. 33.7 g/dL (32.0-36.0); Mean Corpuscular Volume 93.1 fL (80.0-100.0); Monocytes # (auto) 1.1 10 ^3/uL (0-1.3); Neutrophils # (auto) 7.4 10 ^3/uL (1.6-8.6); Neutrophils % (auto) 68.1 % (37.0-80.0); Red Blood Cells 4.31 10^6/uL (4.0-5.20); Red Cell Distribution Width 13.7 % (11.8-14.3); White Blood Cell 10.9 10^3/uL (4.4-10.8)
[2024-03-19 06:03] LABS: Anion Gap 7 (5-15); Calcium 9.1 mg/dL (8.7-10.4); Carbon Dioxide 27 mmol/L (20-30); Chloride 107 mmol/L (98-107); Potassium 3.3 mmol/L (3.5-5.1); Sodium 141 mmol/L (136-145)
[2024-03-19 06:09] LABS: BUN/Creatinine Ratio 12.2 (10.0-20.0); Blood Urea Nitrogen 5 mg/dL (9-23); Glucose 126 mg/dL (74-106); Magnesium 1.8 mg/dL (1.6-2.6)
[2024-03-19] MEDS: POTASSIUM CHL 20MEQ/100ML 100 ML IV ONE (06:49)
[2024-03-19] MEDS: POTASSIUM CHLORIDE 20 MEQ, LIDOCAINE 1% (LOCAL ANESTH.) 2 ML in SODIUM CHL 0.9% 100 ML IV ONE (09:15)
[2024-03-19] MEDS: FUROSEMIDE 20 MG/2 ML VIAL IV ONE (09:39)
[2024-03-19] MEDS ORDERED: PPN PER PHARMACY 0 ML IV SCH (10:30)
[2024-03-19] MEDS: AMINO ACID INFUSION IN D10W 1,000 ML IV NR (21:32)
[2024-03-20] VITALS (19 sets, daily range): BP systolic 107–153; BP diastolic 49–87; PULSE 68–82; RESP 20–35; TEMP 97.3–99.4; O2SAT 93–100
[2024-03-20] MEDS ORDERED: DEXTROSE (50%) 50ML SYRG IV SCH
[2024-03-20] MEDS: InsuLIN REG 1unit/0.01ml Soln (100units/ml) SC SCH
[2024-03-20] MEDS: ACCU-CHEK COMFORT CURVE STRIP VI SCH (00:29)
[2024-03-20 07:52] LABS: Chloride 104 mmol/L (98-107); Sodium 139 mmol/L (136-145)
[2024-03-20 07:54] LABS: Anion Gap 7 (5-15); Carbon Dioxide 28 mmol/L (20-30)
[2024-03-20 07:55] LABS: Calcium 9.2 mg/dL (8.5-10.1)
[2024-03-20 07:59] LABS: Glucose 118 mg/dL (74-106)
[2024-03-20 08:00] LABS: Alkaline Phosphatase 85 U/L (46-116); Magnesium 1.8 mg/dL (1.6-2.6)
[2024-03-20 08:01] LABS: Aspartate Aminotransferase 24 U/L (13-40)
[2024-03-20 08:02] LABS: Bilirubin, Total 0.6 mg/dL (0.2-1.0); Phosphorus 3.7 mg/dL (2.4-5.1); Total Protein 6.2 g/dL (5.7-8.2)
[2024-03-20 08:06] LABS: Alanine Aminotransferase 32 U/L (7-40); BUN/Creatinine Ratio 22.2 (10.0-20.0); Blood Urea Nitrogen 10 mg/dL (9-23); Potassium 3.4 mmol/L (3.5-5.1); Triglycerides 150 mg/dL (< 150)
[2024-03-20 11:09] LABS: Vitamin D-2 25-Hydroxy 2.2 ng/mL (.)
[2024-03-20] MEDS ORDERED: POTASSIUM CHL 20MEQ/100ML 100 ML IV SCH (13:30)
[2024-03-20] MEDS ORDERED: PPN PER PHARMACY IV NR ×2 (13:30→20:00)
[2024-03-20] MEDS: POTASSIUM CHL 20MEQ/100ML 100 ML IV SCH (13:36)
[2024-03-20] MEDS: PPN PER PHARMACY IV NR (20:22)
== END 2024-03-20 21:16 | disposition short-term general hospital (02) | DRG 100 ==
LOC: ER 15:26 → EDBD 15:26 → EDUNIT# 15:26 → TELE 21:42 → DOU IN ICU 21:42 → TELE-EAST 03-11 00:45 → EAST 03-13 04:14 → TELE-EAST 03-16 04:14 → DOU IN ICU 03-16 04:45
PROVIDERS: ADMIT Internal Medicine; ATTEND Nurse Practitioner Acute Care
PROC: 05HF33Z Insertion of Infusion Device into Left Cephalic Vein, Percutaneous Approach (ICD-10-PCS; principal; 2024-03-19)
PROC: B54NZZA Ultrasonography of Left Upper Extremity Veins, Guidance (ICD-10-PCS; 2024-03-19)
DX: G40.409 Other generalized epilepsy and epileptic syndromes, not intractable, without status epilepticus (principal); G92.8 Other toxic encephalopathy; J69.0 Pneumonitis due to inhalation of food and vomit; I50.32 Chronic diastolic (congestive) heart failure; Z68.41 Body mass index [BMI] 40.0-44.9, adult; J96.10 Chronic respiratory failure, unspecified whether with hypoxia or hypercapnia; F41.9 Anxiety disorder, unspecified; E87.6 Hypokalemia; F20.9 Schizophrenia, unspecified; F17.200 Nicotine dependence, unspecified, uncomplicated; I11.0 Hypertensive heart disease with heart failure; E66.01 Morbid (severe) obesity due to excess calories; T42.4X5A Adverse effect of benzodiazepines, initial encounter; J32.9 Chronic sinusitis, unspecified; Z20.822 Contact with and (suspected) exposure to COVID-19; G89.4 Chronic pain syndrome; Z88.6 Allergy status to analgesic agent; Z79.899 Other long term (current) drug therapy; Z79.1 Long term (current) use of non-steroidal anti-inflammatories (NSAID); Z82.62 Family history of osteoporosis; Z83.3 Family history of diabetes mellitus
CPT/HCPCS: 36415; 70450; 70496; 70551; 71045; 73620; 80048; 80053; 80185; 80307; 80320; 81001; 82306; 82550; 82607; 82746; 82962; 83605; 83735; 83880; 84100; 84146; 84443; 84478; 84484; 85025; 85610; 85730; 87040; 87081; 87086; 87426; 87804; 92610; 94640; 95819; 97110; 97116; 97163; 97530; 99291; G0378; J1450; J2001; J3480

== ENCOUNTER 2024-03-31 00:55 | Inpatient (IN) | payer MEDICARE, MEDICAID ==
[~2024-03-31] VITALS: Ht 200.7 cm; Wt 110.0 kg
[~2024-03-31 00:55] MED LIST changes: +ALBU108A5 PO; +ALEN70TA74 PO; +ROSU10TA16 PO
[2024-04-01 17:00] VITALS: BP 139/101; PULSE 81; RESP 18; TEMP 99.1; O2SAT 92
[2024-04-01 20:00] VITALS: PULSE 76; RESP 20; O2SAT 94
[2024-04-01] MEDS ORDERED: ACETAMINOPHEN 325 MG TAB PO PRN (20:00)
[2024-04-01] MEDS ORDERED: HYDROcodone-ACET 5/325MG TAB PO PRN (20:00)
[2024-04-01] MEDS ORDERED: DOCUSATE SOD 100 MG CAP PO PRN (20:00)
[2024-04-01] MEDS ORDERED: ONDANSETRON HCL 4 MG/2 ML VIAL IV PRN (20:00)
[2024-04-01] MEDS ORDERED: ACETAMINOPHEN 500 MG TAB PO PRN ×2 (20:15→20:45)
[2024-04-01 21:00] VITALS: BP 157/93; PULSE 76; RESP 20; TEMP 98; O2SAT 94
[2024-04-01 21:16] LABS: Basophils # (auto) 0.1 10 ^3/uL (0-0.2); Basophils % (auto) 0.7 % (0.0-2.0); Eosinophils # (auto) 0.1 10 ^3/uL (0-0.8); Eosinophils % (auto) 1.6 % (0.0-7.0); Hematocrit 42.7 % (36.0-46.0); Hemoglobin 14.5 g/dL (12.2-16.2); Lymphocytes # (auto) 3.5 10 ^3/uL (0.4-5.4); Lymphocytes % (auto) 37.3 % (10.0-50.0); Mean Corpuscular Hemoglobin 31.7 pg (28.0-32.0); Mean Corpuscular Hgb Conc. 34.1 g/dL (32.0-36.0); Mean Corpuscular Volume 93.2 fL (80.0-100.0); Monocytes # (auto) 0.7 10 ^3/uL (0-1.3); Monocytes % (auto) 7.2 % (0.0-12.0); Neutrophils % (auto) 53.2 % (37.0-80.0); Nucleated Red Blood Cells % 0.2 %; Red Blood Cells 4.58 10^6/uL (4.0-5.20); Red Cell Distribution Width 13.5 % (11.8-14.3); White Blood Cell 9.4 10^3/uL (4.4-10.8)
[2024-04-01] MEDS: levETIRAcetam 1500 mg/100ml 100 ML IV SCH (21:25)
[2024-04-01 21:42] LABS: Alanine Aminotransferase 31 U/L (7-40); Albumin 4.4 g/dL (3.2-4.8); Alkaline Phosphatase 91 U/L (46-116); Anion Gap 9 (5-15); Aspartate Aminotransferase 22 U/L (13-40); Blood Urea Nitrogen 13 mg/dL (9-23); Calcium 10.1 mg/dL (8.7-10.4); Carbon Dioxide 26 mmol/L (20-30); Chloride 104 mmol/L (98-107); Glucose 107 mg/dL (74-106); Potassium 3.7 mmol/L (3.5-5.1); Sodium 139 mmol/L (136-145)
[2024-04-01 21:43] LABS: Bilirubin, Total 0.4 mg/dL (0.2-1.0); Total Protein 7.1 g/dL (5.7-8.2)
[2024-04-01 21:49] LABS: INR 1.01 (0.9-1.15); Prothrombin Time 10.7 sec (9.3-11.8)
[2024-04-01] MEDS: PROPRANOLOL HCL 40 MG PO SCH (22:00)
[2024-04-01] MEDS: SODIUM CHLOR 0.9% PF (SALINE LOCK) 10ML VIAL/SYR IV SCH (22:06)
[2024-04-01] MEDS: PHENYTOIN SODIUM 50 MG/ML 2ML VIAL IV SCH (22:07)
[2024-04-02] VITALS (9 sets, daily range): BP systolic 113–135; BP diastolic 67–95; PULSE 67–91; RESP 16–20; TEMP 97.3–98.2; O2SAT 92–98
[2024-04-02] MEDS: HYDROcodone-ACET 10/325MG TAB PO PRN (05:33)
[2024-04-02] MEDS: ENOXAPARIN SOD 40 MG/0.4 ML SYRINGE SC SCH (08:41)
[2024-04-02] MEDS: FLUoxetine HCL 20 MG CAP PO SCH (08:41)
[2024-04-02] MEDS: FUROSEMIDE 40 MG TAB PO SCH (08:41)
[2024-04-02 17:23] LABS: Urine Bacteria None Seen /hpf (None Seen)
[2024-04-02 17:42] LABS: Amphetamine Screen, Urine Neg (NEGATIVE); Barbiturate Scree,Urine Pos (NEGATIVE); Benzodiazephine Screen, Urine Neg (NEGATIVE); Cannabinoid Screen, Urine Neg (NEGATIVE); Cocaine Screen, Urine Neg (NEGATIVE); Opiate Scree,Urine Neg (NEGATIVE); Phencyclidine Screen, Urine Neg (NEGATIVE); Urine Blood Negative /uL (Negative); Urine Clarity Turbid (Clear); Urine Color Light-Yellow (Yellow); Urine Protein, UAD Negative (Negative); Urine Urobilinogen Normal (Negative); Urine WBC 70 /hpf (0 - 5)
[2024-04-02] MEDS: ATORVASTATIN 20 MG TAB PO SCH (21:29)
[2024-04-02] MEDS: ALPRAZolam 0.25 MG TAB PO SCH (21:29)
[2024-04-03] VITALS (11 sets, daily range): BP systolic 100–144; BP diastolic 62–89; PULSE 78–88; RESP 16–20; TEMP 97.2–98; O2SAT 91–99
[2024-04-04] VITALS (9 sets, daily range): BP systolic 119–148; BP diastolic 72–86; PULSE 66–94; RESP 14–19; TEMP 97.5–98.1; O2SAT 94–98
[2024-04-04] MEDS: CEPHALEXIN 250 MG CAP PO SCH (22:00)
[2024-04-04] MEDS: levETIRAcetam 500 MG TAB PO SCH (22:00)
[2024-04-05] VITALS (11 sets, daily range): BP systolic 90–137; BP diastolic 63–79; PULSE 68–107; RESP 16–100; TEMP 97.3–98.4; O2SAT 92–99
[2024-04-05] MEDS ORDERED: cefTRIAXone 1GM/50ML D5W 50 ML IV SCH (09:00)
[2024-04-05] MEDS: cefTRIAXone 1GM/50ML D5W 50 ML IV ONE (14:08)
[2024-04-05 14:22] LABS: Basophils # (auto) 0.1 10 ^3/uL (0-0.2); Basophils % (auto) 0.7 % (0.0-2.0); Eosinophils # (auto) 0.2 10 ^3/uL (0-0.8); Eosinophils % (auto) 1.3 % (0.0-7.0); Hematocrit 39.9 % (36.0-46.0); Hemoglobin 13.5 g/dL (12.2-16.2); Lymphocytes # (auto) 3.1 10 ^3/uL (0.4-5.4); Lymphocytes % (auto) 26.1 % (10.0-50.0); Mean Corpuscular Hemoglobin 31.5 pg (28.0-32.0); Mean Corpuscular Hgb Conc. 33.9 g/dL (32.0-36.0); Monocytes # (auto) 0.9 10 ^3/uL (0-1.3); Monocytes % (auto) 7.9 % (0.0-12.0); Neutrophils # (auto) 7.6 10 ^3/uL (1.6-8.6); Red Blood Cells 4.29 10^6/uL (4.0-5.20); Red Cell Distribution Width 13.4 % (11.8-14.3); White Blood Cell 11.9 10^3/uL (4.4-10.8)
[2024-04-05 14:42] LABS: Alanine Aminotransferase 29 U/L (7-40); Alkaline Phosphatase 95 U/L (46-116); Anion Gap 8 (5-15); Aspartate Aminotransferase 18 U/L (13-40); BUN/Creatinine Ratio 19.2 (10.0-20.0); Blood Urea Nitrogen 14 mg/dL (9-23); Calcium 9.2 mg/dL (8.7-10.4); Carbon Dioxide 29 mmol/L (20-30); Chloride 103 mmol/L (98-107); Glucose 135 mg/dL (74-106); Potassium 3.6 mmol/L (3.5-5.1); Sodium 140 mmol/L (136-145)
[2024-04-05 14:43] LABS: Bilirubin, Total 0.2 mg/dL (0.2-1.0); Total Protein 6.6 g/dL (5.7-8.2)
[2024-04-05] MEDS: AZITHROMYCIN 500MG/ 250ML 250 ML IV ONE (15:10)
[2024-04-05] MEDS: ALBUTEROL SULF 2.5 MG/0.5ML(0.5%) NEB SOLN NEB PRN (19:04)
[2024-04-05] MEDS: PROPRANOLOL HCL 20 MG TAB PO SCH (21:53)
[2024-04-06] VITALS (8 sets, daily range): BP systolic 110–138; BP diastolic 57–76; PULSE 55–85; RESP 16–22; TEMP 97.6–98.3; O2SAT 91–96
[2024-04-06] MEDS ORDERED: AZITHROMYCIN 500MG/ 250ML 250 ML IV SCH (10:00)
[2024-04-06] MEDS: cefTRIAXone 1GM/50ML D5W 50 ML IV SCH (11:34)
[2024-04-06 14:15] LABS: Basophils # (auto) 0 10 ^3/uL (0-0.2); Basophils % (auto) 0.4 % (0.0-2.0); Eosinophils # (auto) 0.2 10 ^3/uL (0-0.8); Eosinophils % (auto) 1.5 % (0.0-7.0); Hematocrit 38.7 % (36.0-46.0); Lymphocytes # (auto) 2.7 10 ^3/uL (0.4-5.4); Lymphocytes % (auto) 24.2 % (10.0-50.0); Mean Corpuscular Hemoglobin 31.3 pg (28.0-32.0); Mean Corpuscular Hgb Conc. 33.6 g/dL (32.0-36.0); Mean Corpuscular Volume 93.2 fL (80.0-100.0); Monocytes # (auto) 0.8 10 ^3/uL (0-1.3); Monocytes % (auto) 7.2 % (0.0-12.0); Neutrophils # (auto) 7.4 10 ^3/uL (1.6-8.6); Neutrophils % (auto) 66.7 % (37.0-80.0); Nucleated Red Blood Cells % 0.2 %; Red Blood Cells 4.16 10^6/uL (4.0-5.20); Red Cell Distribution Width 13.8 % (11.8-14.3)
[2024-04-06] MEDS: ALPRAZolam 0.25 MG TAB PO SCH (14:43)
[2024-04-06] MEDS: PHENYTOIN SODIUM 100 MG CAP PO SCH (14:44)
[2024-04-06] MEDS: ERTAPENEM SOD INJ 1 GM in SODIUM CHL 0.9% 50 ML IV ONE (14:45)
[2024-04-07] VITALS (9 sets, daily range): BP systolic 100–131; BP diastolic 52–72; PULSE 69–90; RESP 18–22; TEMP 98–100; O2SAT 87–95
[2024-04-07] MEDS: AZITHROMYCIN 250 MG TAB PO SCH (10:56)
[2024-04-07] MEDS: ERTAPENEM SOD INJ 1 GM in SODIUM CHL 0.9% 50 ML IV SCH (10:56)
[2024-04-07] MEDS: PANTOPRAZOLE 40 MG TAB PO ONE (12:37)
[2024-04-07] MEDS ORDERED: CEFD300C2 PO (14:42)
[2024-04-08] VITALS (8 sets, daily range): BP systolic 108–126; BP diastolic 54–71; PULSE 68–82; RESP 17–20; TEMP 97.8–99; O2SAT 89–96
[2024-04-08] MEDS: PANTOPRAZOLE 40 MG TAB PO SCH (05:06)
[2024-04-08 09:24] LABS: Hematocrit 38.9 % (36.0-46.0); Hemoglobin 13.1 g/dL (12.2-16.2); Mean Corpuscular Hgb Conc. 33.6 g/dL (32.0-36.0); Mean Corpuscular Volume 92.2 fL (80.0-100.0); Red Blood Cells 4.22 10^6/uL (4.0-5.20); Red Cell Distribution Width 13.9 % (11.8-14.3); White Blood Cell 5.4 10^3/uL (4.4-10.8)
[2024-04-08 09:26] LABS: Band Neutrophils % (manual) 0; Basophils % (manual) 0 (0.0-2.0); Blast Cells 0; Eosinophils % (manual) 0 (0-7); Metamyelocytes % 0; Myelocytes % 0; Promyelocytes % 0; Reactive Lymphocytes 0
[2024-04-08 10:15] LABS: Lymphocytes % (manual) 32 (10.0-50.0); Monocytes % (manual) 14 (0-12)
[2024-04-08 10:16] LABS: Platelet Estimate Adequate
[2024-04-09 01:00] VITALS: BP 124/78; PULSE 66; RESP 17; TEMP 98; O2SAT 91
[2024-04-09 05:00] VITALS: BP 111/59; PULSE 74; RESP 17; TEMP 97.5; O2SAT 90
[2024-04-09 08:00] VITALS: PULSE 78; RESP 18; O2SAT 92
[2024-04-09 09:22] VITALS: BP 117/64; PULSE 73; RESP 17; TEMP 98.4; O2SAT 91
[2024-04-09 12:38] VITALS: BP 120/76; PULSE 60; RESP 18; TEMP 98.4; O2SAT 91
[2024-04-09 16:35] VITALS: BP 129/94; PULSE 78; RESP 16; TEMP 97.9; O2SAT 95
== END 2024-04-09 17:45 | DRG 56 ==
LOC: EAST 04-01 17:00 → UNDOADMIN 04-01 17:00 → TELE-EAST 04-01 19:59 → EAST 04-07 04:00
PROVIDERS: ADMIT Internal Medicine; ATTEND Internal Medicine
PROC: 05HC33Z Insertion of Infusion Device into Left Basilic Vein, Percutaneous Approach (ICD-10-PCS; principal; 2024-04-09)
PROC: B54NZZA Ultrasonography of Left Upper Extremity Veins, Guidance (ICD-10-PCS; 2024-04-09)
DX: G91.2 (Idiopathic) normal pressure hydrocephalus (principal); G93.41 Metabolic encephalopathy; N39.0 Urinary tract infection, site not specified; I50.32 Chronic diastolic (congestive) heart failure; J96.10 Chronic respiratory failure, unspecified whether with hypoxia or hypercapnia; G40.901 Epilepsy, unspecified, not intractable, with status epilepticus; E66.01 Morbid (severe) obesity due to excess calories; G25.0 Essential tremor; G89.4 Chronic pain syndrome; E78.5 Hyperlipidemia, unspecified; F17.200 Nicotine dependence, unspecified, uncomplicated; F20.9 Schizophrenia, unspecified; I11.0 Hypertensive heart disease with heart failure; F14.10 Cocaine abuse, uncomplicated; F12.10 Cannabis abuse, uncomplicated; G43.909 Migraine, unspecified, not intractable, without status migrainosus; F32.A Depression, unspecified; F41.9 Anxiety disorder, unspecified; J44.9 Chronic obstructive pulmonary disease, unspecified; M81.0 Age-related osteoporosis without current pathological fracture; Z68.27 Body mass index [BMI] 27.0-27.9, adult; Z83.3 Family history of diabetes mellitus; Z88.6 Allergy status to analgesic agent; Z79.891 Long term (current) use of opiate analgesic; Z79.899 Other long term (current) drug therapy; Z87.440 Personal history of urinary (tract) infections; Z82.62 Family history of osteoporosis
CPT/HCPCS: 36415; 71045; 80053; 80185; 80307; 81001; 82542; 82550; 83880; 85007; 85025; 85027; 85610; 87040; 87081; 87086; 87088; 87186; 94640; 97110; 97116; 97163; 97530; G0378; J1335

== ENCOUNTER 2025-07-10 19:07 | Emergency (ER) | payer MEDICARE, MEDICAID ==
[~2025-07-10] VITALS: Ht 165.1 cm; Wt 110.0 kg
[~2025-07-10 19:07] MED LIST changes: +CEFD300C2 PO
--- NOTE | 2025-07-10 21:06 | ED.PDOC ---
History of Present Illness HPI Comments pt biba c/c chronic body pain. per pt, ran out of her Dennis 2 days ago. hx chronic body pain x8 years. denies cp, sob, n/v/d. Denies any new injuries, numbness, weakness, nausea, vomiting, dizziness, chest pain, shortness of breath, diarrhea, abdominal pain, or any other concerns. Chief Complaint: Body Pain Time Seen by MD: 19:23 Primary Care Provider: UNKNOWN Reviewed Notes: Nurses Notes, Medications, Allergies Allergies: Coded Allergies: Aspirin (Verified Allergy, Unknown, ulcers, 07/16/21) Home Meds Active Scripts Cefdinir (Cefdinir) 300 Mg Cap, 1 CAP PO BID for 7 Days, #14 CAP Prov:ERICA IGNACIO MD 04/07/24 Hydrocodone-Acetaminophen (Hydrocodone Bitartrate/AC 10-325 mg) 1 Tab Tab, 1 TAB PO Q8HP PRN, #15 TAB Prov:RUSSELL KNAPP PAC 03/03/24 Hydrocodone-Acetaminophen (Hydrocodone Bitartrate/AC 5-325 mg) 1 Tab Tab, 1 TAB PO Q6HP PRN, #20 TAB Prov:RUSSELL KNAPP PAC 02/27/24 Acetaminophen (Acetaminophen) 500 Mg Tab, 500 MG PO Q4HP PRN, #30 TAB Prov:RUSSELL KNAPP PAC 02/27/24 Cephalexin (KEFLEX CAPSULE) 250 Mg Cp, 1 CAP PO QID for 7 Days, #28 CAP Prov:RUSSELL KNAPP PAC 02/27/24 Furosemide (Lasix) 40 Mg Tab, 40 MG PO DAILY for 14 Days, #14 TAB Prov:RUSSELL KNAPP PAC 02/27/24 Reported Medications Rosuvastatin Calcium (Crestor) 10 Mg Tab, 1 TAB PO DAILY 03/11/24 Albuterol Sulfate (Albuterol Sulfate Hfa) 108 Mcg/Act Aer, 2 PUFF PO Q4HR PRN for WHEEZING/SHORTNESS OF BREATH 03/11/24 Alendronate Sodium (Alendronate Sodium) 70 Mg Tab, 1 TAB PO QWEEKLY 03/11/24 Propranolol Hcl (Inderal La) 60 Mg Cap, 40 MG PO BID, CAP 02/25/21 Fluoxetine HCl (Fluoxetine) 60 Mg Tab, 20 MG PO DAILY, TAB 6/13/21 Hydrocodone-Acetaminophen (Hydrocodone/Acetaminophen 10-325 mg) 1 Tab Tab, 1 TAB PO Q6HP PRN for PAIN SCALE 7 THRU 10, TAB 02/25/21 Alprazolam (Alprazolam) 0.25 Mg Tab, 1 TAB PO TID for ANXIETY, #90 TAB 02/25/21 Mode of Arrival: EMS Past Medical History PAST MEDICAL HISTORY: Seizures Past Medical History (Other): Chronic pain Surgical History: 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, 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: 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 Family History Family History: Unknown Social History Smoker: Non-Smoker Alcohol: Denies ETOH Use Drugs: Denies Drug Use Lives In: Home All Other Systems: Reviewed and Negative (See HPI) Physical Exam General Appearance: No Apparent Distress, Normal HEENT: Pharynx Normal Neck: Full Range of Motion, Non-Tender Respiratory: Lungs Clear, No Respiratory Distress, Normal Breath Sounds Cardiovascular: No Edema, No JVD, No Murmur, No Gallop, Normal Peripheral Pulses, Regular Rate/Rhythm Breast Exam: Deferred Gastrointestinal: No Organomegaly, Non Tender, No Pulsatile Mass, Normal Bowel Sounds, Soft Genitalia: Deferred Pelvic: Deferred Rectal: Deferred Extremities: Normal range of motion, No pedal edema Musculoskeletal : Apperance: Normal Neurologic: Alert, No Motor Deficits, Normal Affect, Normal Mood, No Sensory Deficits Cerebellar Function: Normal Reflexes: NOT DONE Skin: Dry, Normal Color, Warm Lymphatic: No Adenopathy Was a procedure done? Was a procedure done?: No Differential Dx Considerations may include: Chronic pain syndrome X-Ray, Labs, Meds, VS Vital Signs Date Time Temp Pulse Resp B/P (MAP) Pulse Ox O2 Delivery O2 Flow Rate FiO2 07/10/25 21:12 97.5 68 20 131/95 (107) 94 97.5 07/10/25 19:23 98.0 70 20 124/78 97 98.0 Current Medications Medications (Trade) Dose Ordered Sig/Lyla Route Start Time Stop Time Status Last Admin Acetaminophen/ Hydrocodone Bitart (Dennis 5/325MG Tab) 1 tab ONCE ONCE PO 07/10/25 20:30 07/10/25 20:31 DC 07/10/25 21:09 Acetaminophen/ Hydrocodone Bitart (Dennis 5/325MG Tab) 1 tab ONCE ONCE PO 07/10/25 21:15 07/10/25 21:16 DC 07/10/25 21:09 X-Ray, Labs, Meds, VS Comment Patient given Dennis 10 mg p.o.. Reports improvement in pain and function requesting discharge at this time. [id number] Tylenol and Motrin per labeled dosing instructions. Follow up with your PCP and pain management doctor for further refills. Advised to alternate between ice and heat. Advised to rest. Advised to follow up with PCP in 2-3 days as necessary consider further treatments such as MRI, physical therapy, or pain managment referral if symptoms persist. Advised on ER return precautions for increasing pain, numbness, weakness, loss of bowel bladder control or saddle anesthesia. Patient indicates understanding agrees with discharge plan of care. Time of 1ST Reevaluation: 20:00 Reevaluation 1ST: Unchanged Time of 2ND Reevaluation: 21:32 Reevaluation 2ND: Improved Patient Education/Counseling: Diagnosis, Treatment, Need For Follow Up Family Education/Counseling: No Family Present SEPSIS Sepsis Screen Date sepsis recognized/suspect: Jul 10, 2025 Time Sepsis recognized/suspect: 1908 Recent Procedure: No On Antibiotic Therapy: No Respiratory Rate >20: No Heart Rate >90: No Temp<36 C (96.8 F) or >38.3 C: No SBP <90 or MAP <65 mmHG: No New Acute Mental Status Change: No Is the patient on CPAP, BIPAP,: No Vital Signs Date Time Temp Pulse Resp B/P (MAP) Pulse Ox O2 Delivery O2 Flow Rate FiO2 07/10/25 21:12 97.5 68 20 131/95 (107) 94 97.5 07/10/25 19:23 98.0 70 20 124/78 97 98.0 Medications Medications Dose Ordered Sig/Lyla Route Start Time Stop Time Status Last Admin Dose Admin Acetaminophen/ Hydrocodone Bitart 1 tab ONCE ONCE PO 07/10/25 20:30 07/10/25 20:31 DC 07/10/25 21:09 Acetaminophen/ Hydrocodone Bitart 1 tab ONCE ONCE PO 07/10/25 21:15 07/10/25 21:16 DC 07/10/25 21:09 Departure 1 Departure Time of Disposition: 21:05 Impression: Primary Impression: Chronic pain syndrome Disposition: 01 HOME / SELF CARE / HOMELESS Condition: Stable Additional Instructions: Follow up with your PCP or pain management for further refills of your hydrocodone Discharged With: Significant Other Critical Care Note Critical Care Time?: No Stability Stability form required: ANDREI Barnhart Jul 10, 2025 21:06
[2025-07-10] MEDS: HYDROcodone-ACET 5/325MG TAB PO ONE ×2 (21:09)
[2025-07-10 21:12] VITALS: BP 131/95; PULSE 68; RESP 20; TEMP 97.5; O2SAT 94
[2025-07-10] MEDS: KETOROLAC TROMETH 60MG/2ML VIAL IM ONE (21:52)
== END 2025-07-10 22:28 | disposition home or self-care (01) ==
LOC: EDBD 19:07 → ER 19:07
DX: G89.4 Chronic pain syndrome (principal); Z88.6 Allergy status to analgesic agent; Z79.899 Other long term (current) drug therapy
CPT/HCPCS: 96372; 99283; J1885